=== PATIENT | male | born 1965 | race Two or more races ===

== ENCOUNTER 2017-05-02 21:35 | Emergency (ER) | payer OTHER ==
[2017-05-02 21:52] VITALS: BP 176/83
[2017-05-02] MEDS ORDERED: HYDROcodone/ACETAMIN 5-325 MG* 1 TAB PO ONE (23:26)
--- NOTE | 2017-05-02 23:28 | UC ---
Knee Pain HPI - HPI Summary HPI Summary: [place] - History of Current Complaint Chief Complaint: EDExtremityLower Stated Complaint: RT KNEE PAIN Time Seen by Provider: 05/02/17 22:56 Hx Obtained From: Patient Onset/Duration: Sudden Onset, Lasting Hours - 2-3 hours prior to arrival, Still Present Severity Initially: Moderate Severity Currently: Moderate Location Of Injury: right knee---anterior pain Pain Intensity: 5 Pain Scale Used: 0-10 Numeric Character: Aching, Throbbing Aggravating Factor(s): Movement, Weight Bearing Alleviating Factor(s): Rest, Position Associated Signs And Symptoms: Positive: Swelling Able to Bear Weight: No - Allergies/Home Medications Allergies/Adverse Reactions: Allergies Allergy/AdvReac Type Severity Reaction Status Date / Time No Known Allergies Allergy Verified 05/02/17 21:48 PMH/Surg Hx/FS Hx/Imm Hx Previously Healthy: Yes - Family History Known Family History: Positive: None Family History: no reported cardiovascular issues in family lineage - Social History Occupation: Employed Full-time Lives: With Family Alcohol Use: Rare Alcohol Amount: 1 beer/ week Substance Use Type: None Smoking Status (MU): Never Smoked Tobacco Review of Systems Constitutional: Negative Skin: Negative Eyes: Negative ENT: Negative Respiratory: Negative Cardiovascular: Negative Gastrointestinal: Negative Genitourinary: Negative Motor: Negative, Weakness - right knee, Other - swelling and pain with ROM Neurovascular: Negative Musculoskeletal: Negative, Arthralgia - right knee, Edema Neurological: Negative Psychological: Negative All Other Systems Reviewed And Are Negative: Yes Physical Exam Triage Information Reviewed: Yes Appearance: Well-Appearing, Well-Nourished, Pain Distress - mild Vital Signs: Initial Vital Signs Temp 98.3 F 05/02/17 21:49 Pulse 75 05/02/17 21:49 Resp 16 05/02/17 21:49 BP 176/83 05/02/17 21:49 Pulse Ox 100 05/02/17 21:49 Vital Signs Reviewed: Yes Eye Exam: Normal Eyes: Positive: Conjunctiva Clear ENT Exam: Normal ENT: Positive: Normal ENT inspection, Hearing grossly normal. Negative: Nasal congestion, Nasal drainage, Trismus, Muffled/hoarse voice Dental Exam: Normal Neck exam: Normal Neck: Positive: Supple, Nontender Respiratory Exam: Normal Respiratory: Positive: Chest non-tender, Lungs clear, Normal breath sounds, No respiratory distress, No accessory muscle use Cardiovascular Exam: Normal Cardiovascular: Positive: RRR, No Murmur, Pulses Normal, Brisk Capillary Refill Musculoskeletal Exam: Other - right knee Musculoskeletal: Positive: Strength Limited @, ROM Limited @, Edema @ Neurological Exam: Normal Neurological: Positive: Alert, Muscle Tone Normal Psychological Exam: Normal Psychological: Positive: Normal Response To Family Skin Exam: Normal Skin: Positive: Other - no abrasions noted Diagnostics - Radiology No standard instances Xray Interpretation: Positive (See Comments) - joint effusion Radiology Interpretation Completed By: Radiologist Knee Pain Course/Dx - Course Course Of Treatment: neeta knee immoblizer, cruthches non-weight bearing, pain medications, calf muscle and ankle exercises to prevent DVT, RICE, follow with other in home town on arrival in 2-3 days, follow blood pressure with pcp - Differential Dx/Diagnosis Differential Diagnosis/HQI/PQRI: Contusion, Internal Derangement Of Knee Provider Diagnoses: Internal derangement of right knee, hypertension Discharge - Discharge Plan Condition: Stable Disposition: HOME Patient Education Materials: Ibuprofen (By mouth), Swollen Knee Joint (ED), Knee Immobilizer (ED), RICE Therapy (ED), Crutch Instructions (ED), DASH Eating Plan (ED), Hypertension (ED), Hydrocodone/Acetaminophen (By mouth) Referrals: Non Staff,Doctor [Primary Care Provider] - Additional Instructions: Follow with you ortho in 3 days
--- NOTE | 2017-05-03 09:22 | RAD ---
Indication: Right knee injury. 4 views of the right knee demonstrates no definite fracture. There is a joint effusion noted. Soft tissue swelling in the medial patellofemoral joint is noted. IMPRESSION: Suprapatellar joint effusion is noted. No fracture is identified.
== END 2017-05-02 23:57 | disposition home or self-care (01) ==
LOC: ED 21:35
DX: S89.91XA Unspecified injury of right lower leg, initial encounter (principal); W19.XXXA Unspecified fall, initial encounter; Y93.01 Activity, walking, marching and hiking; Y92.89 Other specified places as the place of occurrence of the external cause; I10 Essential (primary) hypertension
CPT/HCPCS: 99282